=== PATIENT | female | born 1990 ===

== ENCOUNTER 2018-03-23 09:04 | Emergency (ER) | payer BC ==
[2018-03-23 09:04] VITALS: BMI 21.9
[2018-03-23] MEDS: Sodium Chloride 0.9% 1,000 ML IV STA (09:43)
--- NOTE | 2018-03-23 09:58 | ED PDOC ---
HPI: Abdomen Time Seen by Provider: 03/23/18 09:15 Chief Complaint (Nursing): Abdominal Pain Chief Complaint (Provider): Abdominal Pain and Nausea History Per: Patient History/Exam Limitations: no limitations Onset/Duration Of Symptoms: Sudden Onset Current Symptoms Are (Timing): Still Present Quality Of Discomfort: "Pain" Associated Symptoms: Nausea. denies: Vomiting, Diarrhea, Urinary Symptoms Additional Complaint(s): 28 year old female presents to the ED with sudden onset of abdominal pain and nausea onset last night. Patient is 16 weeks and her LMP was in October which was unremarkable and advised to follow up by Dr. Trinidad. Patient reports of one episode of spotting around 1AM with severe abdominal pain. Otherwise, she denies vomiting, diarrhea, vaginal discharge or vaginal bleeding. PMD: no family provider Abnormal Vaginal Bleeding: No Past Medical History Reviewed: Historical Data, Nursing Documentation, Vital Signs - Medical History PMH: No Chronic Diseases - Family History Family History: States: Unknown Family Hx - Social History Current smoker - smoking cessation education provided: No Alcohol: None Drugs: Denies - Allergies Allergies/Adverse Reactions: Allergies Allergy/AdvReac Type Severity Reaction Status Date / Time No Known Allergies Allergy Verified 07/27/12 18:35 Review of Systems ROS Statement: Except As Marked, All Systems Reviewed And Found Negative Gastrointestinal: Positive for: Abdominal Pain. Negative for: Vomiting Genitourinary Female: Positive for: Other (vaginal spotting last night). Negative for: Vaginal Discharge, Vaginal Bleeding Physical Exam - Reviewed Nursing Documentation Reviewed: Yes Vital Signs Reviewed: Yes - Physical Exam Appears: Positive for: Non-toxic, No Acute Distress Head Exam: Positive for: ATRAUMATIC, NORMAL INSPECTION, NORMOCEPHALIC Skin: Positive for: Normal Color, Warm, Dry. Negative for: Rash Eye Exam: Positive for: EOMI, Normal appearance, PERRL ENT: Positive for: Normal ENT Inspection Neck: Positive for: Normal, Painless ROM, Supple. Negative for: Decreased ROM Cardiovascular/Chest: Positive for: Regular Rate, Rhythm. Negative for: Murmur Respiratory: Positive for: Normal Breath Sounds. Negative for: Decreased Breath Sounds, Respiratory Distress Gastrointestinal/Abdominal: Positive for: Soft, Tenderness (diffuse abdomainal tenderness) Back: Positive for: Normal Inspection Extremity: Positive for: Normal ROM. Negative for: Tenderness, Pedal Edema, De formity Neurologic/Psych: Positive for: Alert, Oriented (x3) - Laboratory Results Result Diagrams: 03/23/18 10:22 03/23/18 10:22 - ECG Pulse Ox Interpretation: Normal Medical Decision Making Medical Decision Making: Time: 926 Impression: work up for abdominal pain and r/o UTI. Will obtains labs, provide IV fluids, Tylenol for pain and US Plan: CETA-HCG, Quantitative CMP CBC w/ differential Normal saline 1000 mls/hr Influenza A B UA OB US Reevaluation Patients serology is negative for flu a/b. Time: 932 Tylenol 650mg 1329 PROCEDURE: Ob , limited HISTORY: 16 wks abd pain COMPARISON: None TECHNIQUE: Standard protocol for this study/examination. FINDINGS: Transverse presentation. Posterior placenta. No evidence of abruption or previa Gestational age derived from LMP 16 weeks. GUSTAVO 09/07/2018. Gestational age derived from the following biometric parameters 16 weeks 2 days. GUSTAVO 09/05/2018 Biparietal diameter 3.36 cm Head circumference 12.75 cm Abdominal circumference 10.0 cm Femur length 2.07 cm Estimated weight 146.5 g Calculated cardiac rate 139 beats per min. Closed cervix measuring 4.42 cm IMPRESSION: Sixteen weeks 2 days live intrauterine gestation. Gestational concordance documented. Patient's UA is normal and the US presents no abnormalities. The mild pain improved with Tylenol. Follow up with Dr. Trinidad within 1-3 days and return home with precautions. Upon provider reevaluation patient is feeling better, is medically stable, and requires no further treatment in the ED at this time. Patient will be discharged home. Counseling was provided and all questions were answered regarding diagnosis and need for follow up with Dr. Trinidad. There is agreement to discharge plan. Return if symptoms persist or worsen. Scribe Attestation: Documented by Trever Kaiser, acting as a scribe for Misti Bell MD. Provider Scribe Attestation: All medical record entries made by the Scribe were at my direction and personally dictated by me. I have reviewed the chart and agree that the record accurately reflects my personal performance of the history, physical exam, medical decision making, and the department course for this patient. I have also personally directed, reviewed, and agree with the discharge instructions and disposition. Disposition - Clinical Impression Clinical Impression: Abdominal pain during - Disposition Disposition Time: 13:29 Condition: IMPROVED Additional Instructions: Take Tylenol as needed for pain. Follow up with Dr. Trinidad in one to 3 days. Return to the emergency department if symptoms worsen or if new symptoms develop such as pain with urination, vomiting, worsened pain, vaginal bleeding, or other new symptoms. Instructions: Acute Abdomen (Belly Pain), Adult (DC), Stomach Pain in Early Forms: [facility] (Azeri) Print Language: BELIZEAN
[2018-03-23 10:32] LABS: BASO % 0.2 % (0.0-2.0); EOS # 0.1 K/uL (0.0-0.7); EOS % 0.7 % (0.0-4.0); HEMOGLOBIN 11.9 g/dL (12.0-16.0); LYMPH # 1.8 K/uL (1.0-4.3); LYMPH % 15.9 % (20.0-40.0); MEAN CELL VOLUME 84.7 fl (81.0-99.0); MEAN CORPUSCULAR HGB CONC 34.3 g/dL (33.0-37.0); MEAN PLATELET VOLUME 8.1 fl (7.2-11.7); MONO # 0.6 K/uL (0.0-0.8); MONO % 5.2 % (0.0-10.0); NEUT # 8.6 K/uL (1.8-7.0); NRBC % 0.1 % (0.0-0.0); RBC 4.1 Mil/uL (3.80-5.20); RED CELL DISTRIBUTION WIDTH 13.1 % (11.5-14.5)
[2018-03-23 10:39] LABS: SQUAMOUS EPITHIAL 34 /hpf (0-5); URINE BACTERIA RARE (<OCC); URINE BILIRUBIN NEGATIVE (NEGATIVE); URINE BLOOD SMALL (NEGATIVE); URINE CLARITY CLOUDY (Clear); URINE COLOR YELLOW (YELLOW); URINE GLUCOSE (UA) NEG (NEGATIVE); URINE LEUKOCYTE ESTERASE MOD Leu/uL (Negative); URINE PROTEIN NEGATIVE (NEGATIVE); URINE UROBILINOGEN 0.2-1.0 mg/dL (0.2-1.0)
[2018-03-23 10:45] LABS: ALBUMIN 3.7 g/dL (3.5-5.0); ALT/SGPT 47 U/L (9-52); AST/SGOT 44 U/L (14-36); BLOOD UREA NITROGEN 4 mg/dl (7-17); CALCIUM 9.1 mg/dL (8.4-10.2); GFR NON-AFRICAN AMERICAN > 60
[2018-03-23 13:07] LABS: SQUAMOUS EPITHIAL 1 /hpf (0-5); URINE BILIRUBIN NEGATIVE (NEGATIVE); URINE BLOOD NEGATIVE (NEGATIVE); URINE CLARITY CLEAR (Clear); URINE COLOR STRAW (YELLOW); URINE GLUCOSE (UA) NEG (NEGATIVE); URINE LEUKOCYTE ESTERASE NEG Leu/uL (Negative); URINE PROTEIN NEGATIVE (NEGATIVE); URINE UROBILINOGEN 0.2-1.0 mg/dL (0.2-1.0)
--- NOTE | 2018-03-23 13:33 | US ---
Date of service: 03/23/2018 PROCEDURE: Ob , limited HISTORY: 16 wks abd pain COMPARISON: None TECHNIQUE: Standard protocol for this study/examination. FINDINGS: Transverse presentation. Posterior placenta. No evidence of abruption or previa Gestational age derived from LMP 16 weeks. GUSTAVO 09/07/2018. Gestational age derived from the following biometric parameters 16 weeks 2 days. GUSTAVO 09/05/2018 Biparietal diameter 3.36 cm Head circumference 12.75 cm Abdominal circumference 10.0 cm Femur length 2.07 cm Estimated weight 146.5 g Calculated cardiac rate 139 beats per min. Closed cervix measuring 4.42 cm IMPRESSION: Sixteen weeks 2 days live intrauterine gestation. Gestational concordance documented.
[2018-03-23 13:55] VITALS: BP 107/60; PULSE 96; RESP 18; TEMP 98.4; O2SAT 98
== END 2018-03-23 14:00 | disposition home or self-care (01) ==
LOC: H.ER 09:04
DX: O26.892 Other specified pregnancy related conditions, second trimester (principal); Z3A.16 16 weeks gestation of pregnancy
CPT/HCPCS: 76815; 80053; 81003; 81025; 84702; 85025; 87804; 96360; 99284; J7030